=== PATIENT | male | born 1985 | race Caucasian/White ===

== ENCOUNTER 2017-04-15 16:53 | Emergency (ER) | payer BC ==
[~2017-04-15] VITALS: Ht 188 cm; Wt 70.6 kg
[2017-04-15 16:59] VITALS: TEMP 36.6; Ht 188 cm; Wt 70.6 kg
[2017-04-15] MEDS ORDERED: SODIUM CHLORIDE 0.9% 1000ML 1,000 ML IV STA (17:57)
[2017-04-15] MEDS ORDERED: KETOROLAC TROMETHAMINE 30 MG/ML VIAL IV STA (17:57)
[2017-04-15 18:28] LABS: URINE APPEARANCE CLOUDY (CLEAR); URINE BILIRUBIN NEG (NEG); URINE COLOR YELLOW; URINE NITRITE NEG (NEG); URINE SPECIFIC GRAVITY 1.025 (1.000-1.030); UROBILINOGEN NEG (NEG)
[2017-04-15 18:29] LABS: BASO % 0.3 %; BASO ABS # 0.03 K/uL (0-0.2); COMPLETE YES; EOS % 1.1 %; HEMATOCRIT 43.7 % (42-52); IG% 0.2 %; LYMPH % 26.9 %; LYMPH ABS # 3.05 K/uL (1.2-3.4); MEAN CORPUSCULAR HEMOGLOBIN 31.3 pg (25-34); MEAN CORPUSCULAR HGB CONC 33.6 g/dl (32-36); MEAN PLATELET VOLUME 8.5 fL (7.4-10.4); MONO % 10.9 %; NEUT % 60.6 %; PLATELET COUNT 325 K/uL (130-400); WHITE BLOOD COUNT 11.34 K/uL (4.8-10.8)
[2017-04-15 18:30] LABS: MANUAL MICROSCOPIC REQUIRED? NO; REVIEW REQ? NO
[2017-04-15 18:53] LABS: ALKALINE PHOSPHATASE 51 U/L (45-117); ALT/SGPT 20 U/L (12-78); AST/SGOT 13 U/L (15-37); BLOOD UREA NITROGEN 15 mg/dl (7-18); BUN/CREATININE RATIO 17.4 (10-20); CALCIUM 8.9 mg/dl (8.5-10.1); CARBON DIOXIDE 28 mmol/L (21-32); CHLORIDE 105 mmol/L (98-107); GLUCOSE 86 mg/dl (70-99); POTASSIUM 3.9 mmol/L (3.5-5.1); SODIUM 140 mmol/L (136-145)
--- NOTE | 2017-04-15 19:08 | DIAGNOSTIC IMAGING REPORT ---
ABDOMEN AND PELVIS CT WITHOUT CONTRAST CT DOSE: 585.99 mGycm HISTORY: Right-sided FLANK PAIN TECHNIQUE: Multiaxial CT images of the abdomen and pelvis were performed without the use of intravenous and oral contrast according to the standard department stone protocol. A dose lowering technique was utilized adhering to the principles of ALARA. COMPARISON STUDY: None. FINDINGS: Mild dependent changes seen within the lung bases posteriorly. No fractures within the visualized osseous structures. The unenhanced liver, spleen, adrenal glands, pancreas, and gallbladder are unremarkable. Multiple punctate bilateral renal calculi. No ureteral stones. No hydronephrosis. Bladder wall is mildly thickened. No pelvic free fluid. A few colonic diverticula. Suboptimal evaluation for bowel pathology due to the lack of intravenous and oral contrast. However, there is no definite bowel wall thickening or obstruction. The appendix is normal in caliber. IMPRESSION: 1. Bilateral nephrolithiasis. No ureteral stones. No hydronephrosis. 2. Mild bladder wall thickening. Recommend correlation with urinalysis to exclude a cystitis. 3. No definite bowel wall thickening or obstruction. 4. Normal appendix. Electronically signed by: Reggie Galindo M.D. 04/15/2017 7:06 PM Dictated Date/Time: 04/15/2017 6:56 PM
[2017-04-15 19:19] LABS: CREATININE 0.84 mg/dl (0.60-1.40)
[2017-04-15] MEDS ORDERED: CIPROFLOXACIN 500 MG TAB PO STA (19:55)
[2017-04-15] MEDS ORDERED: CIPR-255 PO (19:58)
[2017-04-15] MEDS ORDERED: NORCO 5/325MG HOME PACK PO ONE (20:00)
[2017-04-15 20:10] VITALS: BP 128/85; PULSE 70; O2SAT 98
--- NOTE | 2017-04-15 21:08 | EMERGENCY ROOM VISIT NOTE ---
History Report prepared by Christinaibdesmond: Toribio Lucia Under the Supervision of: Dr. Alan Bauer M.D. First contact with patient: 17:43 Chief Complaint: FLANK PAIN Stated Complaint: KIDNEY STONE PAINS History of Present Illness The patient is a 31 year old male who presents to the Emergency Room with complaints of waxing and waning RLQ abdominal pain beginning 9 hours ago. The patient has a history of kidney stones and states that his current symptoms feel very similar. He rates his current pain as a 5/10 in severity. He states that his pain began in his left flank and moved to his stomach. The patient also complains of burning with urination. Pt denies LOC, headache, fevers, chills, diaphoresis, visual changes, neck pain, chest pain, breathing difficulties, nausea, vomiting, melena, hematochezia, numbness, weakness, lymphadenopathy, rash, or other complaints. His previous kidney stones required lithotripsy. He denies any recent straining or injury. Source of History: patient Onset: 9 hours ago Position: abdomen (RLQ) Symptom Intensity: 5/10 Timing: waxes/wanes Associated Symptoms: + urinary symptoms ("burning") Review of Systems See HPI for pertinent positives and negatives. A total of ten systems were reviewed and were otherwise negative. Past Medical & Surgical Medical Problems: (1) Kidney stones (2) No Known Active Medical Problems Family History No pertinent family history stated. Social History Smoking Status: Current Some Day Smoker Housing Status: lives with family Current/Historical Medications Scheduled Ciprofloxacin Hcl (Cipro), 500 MG PO BID Allergies Coded Allergies: No Known Allergies (Unverified , 04/15/17) Physical Exam Vital Signs Date Time Temp Pulse Resp B/P (MAP) Pulse Ox O2 Delivery O2 Flow Rate FiO2 04/15/17 20:10 70 18 128/85 98 Room Air 04/15/17 18:51 60 18 137/85 100 Room Air 04/15/17 16:59 36.6 95 18 135/88 99 Room Air Physical Exam GENERAL: Awake, alert, well-appearing, in no distress HENT: Normocephalic, atraumatic. Oropharynx unremarkable. EYES: Normal conjunctiva. Sclera non-icteric. NECK: Supple. No nuchal rigidity. FROM. No JVD. RESPIRATORY: Clear to auscultation. CARDIAC: Regular rate, normal rhythm. Extremities warm and well perfused. Pulses equal. ABDOMEN: Soft, non-distended. No tenderness to palpation. No rebound or guarding. No masses. RECTAL: Deferred. MUSCULOSKELETAL: Chest examination reveals no tenderness. The back is symmetrical on inspection without obvious abnormality. Right CVA and right flank tenderness to percussion. No joint edema. LOWER EXTREMITIES: Calves are equal size bilaterally and non-tender. No edema. No discoloration. NEURO: Normal sensorium. No sensory or motor deficits noted. SKIN: No rash or jaundice noted. Medical Decision & Procedures ER Provider Diagnostic Interpretation: CT: Radiology results as stated below per my review and radiologist interpretation ABDOMEN AND PELVIS CT WITHOUT CONTRAST FINDINGS: Mild dependent changes seen within the lung bases posteriorly. No fractures within the visualized osseous structures. The unenhanced liver, spleen, adrenal glands, pancreas, and gallbladder are unremarkable. Multiple punctate bilateral renal calculi. No ureteral stones. No hydronephrosis. Bladder wall is mildly thickened. No pelvic free fluid. A few colonic diverticula. Suboptimal evaluation for bowel pathology due to the lack of intravenous and oral contrast. However, there is no definite bowel wall thickening or obstruction. The appendix is normal in caliber. IMPRESSION: 1. Bilateral nephrolithiasis. No ureteral stones. No hydronephrosis. 2. Mild bladder wall thickening. Recommend correlation with urinalysis to exclude a cystitis. 3. No definite bowel wall thickening or obstruction. 4. Normal appendix. Electronically signed by: Reggie Galindo M.D. Laboratory Results 04/15/17 18:15 Red Blood Count 4.70, Mean Corpuscular Volume 93.0, Mean Corpuscular Hemoglobin 31.3, Mean Corpuscular Hemoglobin Concent 33.6, Mean Platelet Volume 8.5, Neutrophils (%) (Auto) 60.6, Lymphocytes (%) (Auto) 26.9, Monocytes (%) (Auto) 10.9, Eosinophils (%) (Auto) 1.1, Basophils (%) (Auto) 0.3, Neutrophils # (Auto ) 6.87, Lymphocytes # (Auto) 3.05, Monocytes # (Auto) 1.24, Eosinophils # (Auto ) 0.13, Basophils # (Auto) 0.03 04/15/17 18:15 Test 04/15/17 18:10 04/15/17 18:15 Urine Color YELLOW Urine Appearance CLOUDY (CLEAR) Urine pH 7.0 (4.5-7.5) Urine Specific [place] 1.025 (1.000-1.030) Urine Protein NEG (NEG) Urine Glucose (UA) NEG (NEG) Urine Ketones NEG (NEG) Urine Occult Blood NEG (NEG) Urine Nitrite NEG (NEG) Urine Bilirubin NEG (NEG) Urine Urobilinogen NEG (NEG) Urine Leukocyte Esterase NEG (NEG) Urine WBC (Auto) 1-5 /hpf (0-5) Urine RBC (Auto) 0-4 /hpf (0-4) Urine Hyaline Casts (Auto) 0 /lpf (0-5) Urine Epithelial Cells (Auto) 5-10 /lpf (0-5) Urine Bacteria (Auto) NEG (NEG) White Blood Count 11.34 K/uL (4.8-10.8) Red Blood Count 4.70 M/uL (4.7-6.1) Hemoglobin 14.7 g/dL (14.0-18.0) Hematocrit 43.7 % (42-52) Mean Corpuscular Volume 93.0 fL (80-100) Mean Corpuscular Hemoglobin 31.3 pg (25-34) Mean Corpuscular Hemoglobin Concent 33.6 g/dl (32-36) Platelet Count 325 K/uL (130-400) Mean Platelet Volume 8.5 fL (7.4-10.4) Neutrophils (%) (Auto) 60.6 % Lymphocytes (%) (Auto) 26.9 % Monocytes (%) (Auto) 10.9 % Eosinophils (%) (Auto) 1.1 % Basophils (%) (Auto) 0.3 % Neutrophils # (Auto) 6.87 K/uL (1.4-6.5) Lymphocytes # (Auto) 3.05 K/uL (1.2-3.4) Monocytes # (Auto) 1.24 K/uL (0.11-0.59) Eosinophils # (Auto) 0.13 K/uL (0-0.5) Basophils # (Auto) 0.03 K/uL (0-0.2) RDW Standard Deviation 47.6 fL (36.4-46.3) RDW Coefficient of Variation 13.9 % (11.5-14.5) Immature Granulocyte % (Auto) 0.2 % Immature Granulocyte # (Auto) 0.02 K/uL (0.00-0.02) Anion Gap 7.0 mmol/L (3-11) Est Creatinine Clear Calc Drug Dose 126.1 ml/min Estimated GFR () 134.3 Estimated GFR (Non- 115.9 BUN/Creatinine Ratio 17.4 (10-20) Calcium Level 8.9 mg/dl (8.5-10.1) Total Bilirubin 0.2 mg/dl (0.2-1) Direct Bilirubin mg/dl (0-0.2) Aspartate Amino Transf (AST/SGOT) 13 U/L (15-37) Alanine Aminotransferase (ALT/SGPT) 20 U/L (12-78) Alkaline Phosphatase 51 U/L (45-117) Total Protein 7.7 gm/dl (6.4-8.2) Albumin 4.2 gm/dl (3.4-5.0) Lipase 146 U/L (73-393) Chemistry Specimen Hemolysis Laboratory results reviewed by me Medications Administered Medications (Trade) Dose Ordered Sig/Carlos Route Start Time Stop Time Status Last Admin Dose Admin Sodium Chloride 1,000 ml @ 999 mls/hr Q1H1M STAT IV 04/15/17 17:57 04/15/17 18:57 DC 04/15/17 18:18 999 MLS/HR Ketorolac Tromethamine (Toradol Inj) 30 mg NOW STAT IV 04/15/17 17:57 04/15/17 17:58 DC 04/15/17 18:23 30 MG Ciprofloxacin (Cipro Tab) 500 mg NOW STAT PO 04/15/17 19:55 04/15/17 19:57 DC 04/15/17 20:09 500 MG Acetaminophen/ Hydrocodone Bitart ([place] 5/325mg Home Pack) 1 homepack UD ONCE PO 04/15/17 20:00 04/15/17 20:01 DC 04/15/17 20:00 1 HOMEPACK ED Course 1755: The patient was evaluated in room B11B. A complete history and physical exam was performed. 1756: Ordered Toradol Inj 30 mg IV, Sodium Chloride 1000 ml @ 999 mls/hr IV. 1954: Ordered Cipro Tab 500 mg PO. 1999: Ordered [place] 5/325 mg home pack PO. I reevaluated the patient. Discussed results and discharge instructions: he verbalized understanding and agreement. The patient is ready for discharge. Medical Decision Triage Nursing notes reviewed. The patient's presentation and history were concerning for flank pain. Etiologies such as renal colic, appendicitis, diverticulitis, mesenteric ischemia, aortic pathology, infections, inflammatory bowel disease, PUD, biliary pathology, UTI, as well as others were entertained. The patient was evaluated. Clinically he was doing well. He and his pain had improved. He was hydrated and given IV Toradol. The patient underwent CT imaging and laboratory testing. Urinalysis was not overly concerning. His CBC showed a mild leukocytosis. Chemistry panel was unremarkable. CT imaging showed nephrolithiasis as well as a thickened bladder wall. Etiology raise concerns about a cystitis. There is no evidence of ureterolithiasis. The patient was informed of the findings. I will start him on oral Cipro. The patient noted some mild pain and requested analgesia. PDMP review revealed no abnormalities. The patient was given a home pack of [place], he will use ibuprofen, and Cipro. I did give him referral information for urology. I gave my usual and customary discussion regarding this issue. By the evaluation outlined above other emergent etiologies such as those listed in the differential, as well as others, were deemed relatively unlikely. The patient was educated about the findings as listed above. All questions were answered and the patient was pleased with the treatment. Return instructions were outlined and the patient was discharged in stable condition. The patient was referred to his PCP and urology for follow-up for a recheck of the current condition. [place] Drug Monitoring Program Search Results: patient reviewed within database, no issues identified Medication Reconcilliation Current Medication List: was personally reviewed by me Blood Pressure Screening Patient's blood pressure: Elevated blood pressure Blood pressure disposition: Elevated BP felt to be situational Impression Primary Impression: Right flank pain Additional Impression: Cystitis Scribe Attestation The scribe's documentation has been prepared under my direction and personally reviewed by me in its entirety. I confirm that the note above accurately reflects all work, treatment, procedures, and medical decision making performed by me. Departure Information Dispostion Home / Self-Care Prescriptions Ciprofloxacin Hcl (CIPRO) 500 Mg Tab 500 MG PO BID, #14 TAB Prov: Alan Bauer MD 04/15/17 Forms HOME CARE DOCUMENTATION FORM, IMPORTANT VISIT INFORMATION Patient Instructions My [facility] Additional Instructions Ciprofloxacin 500mg: Take one pill twice daily for 7 days for your infection. All antibiotics can cause diarrhea. If this occurs and you feel worse or it does not resolve in 1-2 days follow up with your doctor or return to the Emergency Department as this could be signs of serious underlying problems. Any medication can cause an allergic reaction or complication, stop the pills immediately and return to the ER for rash, hives, breathing difficulties, tendon pain, tendon injury, or swelling. Hydrocodone/acetaminophen 5/325mg: Take 1-2 pills every 6 hours as needed for pain. Avoid additional Acetaminophen/Tylenol, alcohol, operating machinery or dangerous equipment, working on ladders or roofs, DRIVING, or situations where being under the influence may be dangerous. It is recommended to use a stool softener such as Colace, 100mg twice daily while taking this medication to avoid constipation. Ibuprofen(Motrin, Advil) may be used for fever or pain. Use 600mg every six hours as needed. Take with food. Avoid using more than 2400mg in a 24 hour period. Do not use 2400mg per day for more than three consecutive days without physician direction. Prolonged inappropriate use can lead to stomach upset or ulcers. This medication can be taken if you need to drive, work, or perform activities which may be dangerous when taking narcotic pain medication. (AND/OR) Acetaminophen(Tylenol) may be used for fever or pain. Use 1000mg every six hours as needed. Avoid using more than 4000mg in a 24 hour period. This medication can be taken if you need to drive, work, or perform activities which may be dangerous when taking narcotic pain medication. Rest and avoid strenuous activity until your symptoms resolve. Drink plenty of fluids. Return to the ER for worsening abdominal or back pain, vomiting, fevers, passing out, or as needed. Follow up with [facility] tomorrow, [phone], to arrange a visit. Follow-up with your primary care physician in 2 to 3 days for a recheck of your current condition. Problem Qualifiers
== END 2017-04-15 20:24 | disposition home or self-care (01) ==
LOC: C.EDB 16:55
DX: N30.90 Cystitis, unspecified without hematuria (principal); N20.0 Calculus of kidney; R10.31 Right lower quadrant pain; F17.200 Nicotine dependence, unspecified, uncomplicated; Z87.442 Personal history of urinary calculi

== ENCOUNTER 2017-04-18 22:40 | Emergency (ER) | payer BC ==
[~2017-04-18] VITALS: Ht 188 cm; Wt 73.1 kg
[~2017-04-18 22:40] MED LIST: CIPR-255 PO
[2017-04-18 22:47] VITALS: TEMP 36.5; Ht 188 cm; Wt 73.1 kg
[2017-04-18] MEDS ORDERED: SODIUM CHLORIDE 0.9% 1000ML 1,000 ML IV STA ×2 (22:56)
[2017-04-18] MEDS ORDERED: KETOROLAC TROMETHAMINE 30 MG/ML VIAL IV STA (22:56)
[2017-04-18 23:45] LABS: BASO % 0.4 %; BASO ABS # 0.04 K/uL (0-0.2); COMPLETE YES; EOS % 4.6 %; HEMATOCRIT 42.3 % (42-52); IG% 0.3 %; LYMPH % 38.4 %; MEAN CELL VOLUME 92.6 fL (80-100); MEAN CORPUSCULAR HEMOGLOBIN 31.5 pg (25-34); MEAN PLATELET VOLUME 8.4 fL (7.4-10.4); MONO % 12.1 %; NEUT % 44.2 %; PLATELET COUNT 325 K/uL (130-400); RED BLOOD COUNT 4.57 M/uL (4.7-6.1); WHITE BLOOD COUNT 10.94 K/uL (4.8-10.8)
[2017-04-19 00:06] LABS: URINE APPEARANCE CLEAR (CLEAR); URINE BILIRUBIN NEG (NEG); URINE COLOR YELLOW; URINE NITRITE NEG (NEG); URINE PH 5.5 (4.5-7.5); URINE SPECIFIC GRAVITY 1.024 (1.000-1.030); UROBILINOGEN NEG (NEG); ZZUR CULT IF INDIC CLEAN CATCH NO
[2017-04-19 00:11] LABS: ALT/SGPT 14 U/L (12-78); BLOOD UREA NITROGEN 19 mg/dl (7-18); BUN/CREATININE RATIO 21.2 (10-20); CALCIUM 8.9 mg/dl (8.5-10.1); CARBON DIOXIDE 28 mmol/L (21-32); CHLORIDE 106 mmol/L (98-107); CREATININE 0.91 mg/dl (0.60-1.40); GLUCOSE 85 mg/dl (70-99); POTASSIUM 3.8 mmol/L (3.5-5.1); SODIUM 140 mmol/L (136-145)
[2017-04-19 00:14] LABS: ALKALINE PHOSPHATASE 54 U/L (45-117); AST/SGOT 12 U/L (15-37)
[2017-04-19 00:15] LABS: MANUAL MICROSCOPIC REQUIRED? NO; REVIEW REQ? NO
[2017-04-19] MEDS ORDERED: CIPR-255 PO (00:59)
[2017-04-19] MEDS ORDERED: MoRPHine SULFATE 4 MG/ML 1 ML CARP\\VIAL ONE (01:00)
[2017-04-19] MEDS ORDERED: MoRPHine SULFATE 4 MG/ML 1 ML CARP\\VIAL IV STA (01:04)
[2017-04-19 01:30] VITALS: BP 120/56
[2017-04-19 01:44] VITALS: PULSE 75; O2SAT 96
--- NOTE | 2017-04-19 04:50 | EMERGENCY ROOM VISIT NOTE ---
History First contact with patient: 22:51 Chief Complaint: FLANK PAIN Stated Complaint: SHARP STABBING PAIN IN MID STOMACH TO BACK R SIDE History of Present Illness The patient is a 31 year old male who presents to the Emergency Room with complaints of right flank pain that radiates to his groin for the past day described as aching, ranging in severity currently 6 out of 10. Nothing makes it better or worse. He was here the other day with a similar complaint. He had a CT scan that showed nonobstructed nephrolithiasis. He has a history kidney stones. Patient denies urinary symptoms, chest pain, dyspnea, fever, chills, testicular pain, penile pain. No injury to the area. Review of Systems See HPI for pertinent positives & negatives. A total of 10 systems reviewed and were otherwise negative. Past Medical/Surgical History Medical Problems: (1) Kidney stones (2) No Known Active Medical Problems Social History Smoking Status: Never Smoker Housing Status: lives with family Current/Historical Medications Scheduled Ciprofloxacin Hcl (Cipro), 500 MG PO BID Physical Exam Vital Signs Date Time Temp Pulse Resp B/P (MAP) Pulse Ox O2 Delivery O2 Flow Rate FiO2 04/19/17 01:44 75 17 96 04/19/17 01:30 120/56 04/19/17 01:29 64 12 97 04/19/17 01:14 62 15 98 04/19/17 01:00 120/68 04/19/17 00:59 57 14 95 04/19/17 00:54 125/61 95 04/19/17 00:05 56 14 95 04/19/17 00:00 55 14 110/64 95 04/18/17 23:45 55 13 97 04/18/17 23:30 51 15 115/59 95 04/18/17 23:13 Room Air 04/18/17 23:13 128/71 04/18/17 22:47 36.5 78 18 132/72 96 Room Air Pain Rating (0-10): 3.0 Physical Exam VITALS: Vitals are noted on the nurse's note and reviewed by myself. Vital signs stable. GENERAL: Pleasant male, in no acute distress, nondiaphoretic, well-developed well-nourished. SKIN: The skin was without rashes, erythema, edema, or bruising. There is no tenting of the skin. Capillary reflex less than 2 seconds. HEAD: Normocephalic atraumatic. EARS: External auditory canals clear, tympanic membranes pearly martines without erythema or effusion bilaterally. EYES: Pupils equal round and reactive to light and accommodation. Conjunctivae without injection, sclerae without icterus. Extraocular movements intact. NOSE: Patent, turbinates without inflammation or discharge. MOUTH: Mucous membranes moist. Pharynx without erythema or exudate. Uvula midline. Airway patent. Tongue does not deviate. NECK: Supple without nuchal rigidity. No lymphadenopathy. No thyromegaly. Cervical spine is nontender. No JVD. HEART: Regular rate and rhythm without murmurs gallops or rubs. LUNGS: Clear to auscultation bilaterally without wheezes, rales or rhonchi. No dullness to percussion. No retractions or accessory muscle use. ABDOMEN: Positive bowel sounds x 4. Normal tympanic percussion. Soft, nontender, without masses or organomegaly. Angelo sign negative. No guarding or rebound tenderness. No CVA tenderness MUSCULOSKELETAL: No muscle atrophy, erythema, or edema noted. NEURO: Patient was alert and oriented to person place and time. Normal sensation to light and sharp touch. No focal neurological deficits. Medical Decision & Procedures Laboratory Results 04/18/17 23:25 Red Blood Count 4.57, Mean Corpuscular Volume 92.6, Mean Corpuscular Hemoglobin 31.5, Mean Corpuscular Hemoglobin Concent 34.0, Mean Platelet Volume 8.4, Neutrophils (%) (Auto) 44.2, Lymphocytes (%) (Auto) 38.4, Monocytes (%) (Auto) 12.1, Eosinophils (%) (Auto) 4.6, Basophils (%) (Auto) 0.4, Neutrophils # (Auto ) 4.85, Lymphocytes # (Auto) 4.20, Monocytes # (Auto) 1.32, Eosinophils # (Auto ) 0.50, Basophils # (Auto) 0.04 04/18/17 23:25 Test 04/18/17 23:25 White Blood Count 10.94 K/uL (4.8-10.8) Red Blood Count 4.57 M/uL (4.7-6.1) Hemoglobin 14.4 g/dL (14.0-18.0) Hematocrit 42.3 % (42-52) Mean Corpuscular Volume 92.6 fL (80-100) Mean Corpuscular Hemoglobin 31.5 pg (25-34) Mean Corpuscular Hemoglobin Concent 34.0 g/dl (32-36) Platelet Count 325 K/uL (130-400) Mean Platelet Volume 8.4 fL (7.4-10.4) Neutrophils (%) (Auto) 44.2 % Lymphocytes (%) (Auto) 38.4 % Monocytes (%) (Auto) 12.1 % Eosinophils (%) (Auto) 4.6 % Basophils (%) (Auto) 0.4 % Neutrophils # (Auto) 4.85 K/uL (1.4-6.5) Lymphocytes # (Auto) 4.20 K/uL (1.2-3.4) Monocytes # (Auto) 1.32 K/uL (0.11-0.59) Eosinophils # (Auto) 0.50 K/uL (0-0.5) Basophils # (Auto) 0.04 K/uL (0-0.2) RDW Standard Deviation 46.6 fL (36.4-46.3) RDW Coefficient of Variation 13.7 % (11.5-14.5) Immature Granulocyte % (Auto) 0.3 % Immature Granulocyte # (Auto) 0.03 K/uL (0.00-0.02) Urine Color YELLOW Urine Appearance CLEAR (CLEAR) Urine pH 5.5 (4.5-7.5) Urine Specific [place] 1.024 (1.000-1.030) Urine Protein NEG (NEG) Urine Glucose (UA) NEG (NEG) Urine Ketones NEG (NEG) Urine Occult Blood NEG (NEG) Urine Nitrite NEG (NEG) Urine Bilirubin NEG (NEG) Urine Urobilinogen NEG (NEG) Urine Leukocyte Esterase NEG (NEG) Anion Gap 6.0 mmol/L (3-11) Est Creatinine Clear Calc Drug Dose 120.5 ml/min Estimated GFR () 128.8 Estimated GFR (Non- 111.1 BUN/Creatinine Ratio 21.2 (10-20) Calcium Level 8.9 mg/dl (8.5-10.1) Total Bilirubin 0.3 mg/dl (0.2-1) Direct Bilirubin < 0.1 mg/dl (0-0.2) Aspartate Amino Transf (AST/SGOT) 12 U/L (15-37) Alanine Aminotransferase (ALT/SGPT) 14 U/L (12-78) Alkaline Phosphatase 54 U/L (45-117) Total Creatine Kinase 137 U/L (39-308) Total Protein 7.8 gm/dl (6.4-8.2) Albumin 4.1 gm/dl (3.4-5.0) Lipase 123 U/L (73-393) Medications Administered Medications (Trade) Dose Ordered Sig/Carlos Route Start Time Stop Time Status Last Admin Dose Admin Sodium Chloride 1,000 ml @ 999 mls/hr Q1H1M STAT IV 04/18/17 22:56 04/18/17 23:56 DC 04/18/17 23:27 999 MLS/HR Sodium Chloride 1,000 ml @ 125 mls/hr Q8H STAT IV 04/18/17 22:56 04/19/17 02:40 DC 04/18/17 23:27 125 MLS/HR Ketorolac Tromethamine (Toradol Inj) 30 mg NOW STAT IV 04/18/17 22:56 04/18/17 22:59 DC 04/18/17 23:28 30 MG Morphine Sulfate (MoRPHine SULFATE INJ) 4 mg STK-MED ONCE .ROUTE 04/19/17 01:00 04/19/17 01:01 DC 04/19/17 01:05 4 MG ED Course Prior records/ancillary studies reviewed. Triage Nursing notes reviewed. Additional history obtained from family. The patient's history was concerning for abdominal pain. Differential diagnosis: Etiologies such as appendicitis, diverticulitis, PUD, biliary pathology, UTI, pancreatitis, obstruction, mesenteric ischemia, aortic pathology, infections, inflammatory bowel disease, renal colic, as well as others were entertained. Physical examination findings: As above. ER treatment provided: Toradol, morphine, Zofran, IV fluids On reassessment the patient felt better. Diagnostics interpreted by me: The labs revealed urine is negative for infection stable H&H Imaging studies: CT scan was reviewed from 2 days ago and showed no obstructive kidney stones. Ultrasound today shows no hydronephrosis per radiology Exam and history seem consistent with ongoing right flank pain. Patient had a CT scan 2 days ago. This was negative. Ultrasound was also negative today. Patient was advised follow-up family care for his ongoing symptoms or here in the ER sooner for fevers, severe pain, vomiting, worsening signs or symptoms or as needed. Patient did not have an acute abdomen on exam. He was well- appearing. He is tolerating fluids.By the evaluation outlined above emergent etiologies such as appendicitis, diverticulitis, PUD, biliary pathology, UTI, pancreatitis, obstruction, mesenteric ischemia, aortic pathology, infections, inflammatory bowel disease, renal colic, as well as others were deemed relatively unlikely. The pt informed about the findings as listed above. All questions were answered and pleased with the treatment. Return instructions were outlined and the patient was discharged in stable condition. Case reviewed with my attending Referral: The patient was referred back to their primary care physician for follow-up in 2 to 3 days for a recheck of the current condition. Medical Decision As above Medication Reconcilliation Current Medication List: was personally reviewed by me Blood Pressure Screening Patient's blood pressure: Normal blood pressure Impression Primary Impression: Right flank pain Departure Information Dispostion Home / Self-Care Condition GOOD Forms HOME CARE DOCUMENTATION FORM, Work Instructions, Return To Work: 1 day IMPORTANT VISIT INFORMATION Patient Instructions My [facility], ED Flank Pain Uncertain Cause Additional Instructions DO NOT drive, drink alcohol, operate machinery, or perform dangerous activities today. You were given medications in the ER that can affect your ability to safely function or operate a vehicle. Ibuprofen(Motrin, Advil) may be used for fever or pain. Use 600mg every six hours as needed. Take with food. Avoid using more than 2400mg in a 24 hour period. Do not use 2400mg per day for more than three consecutive days without physician direction. Prolonged inappropriate use can lead to stomach upset or ulcers. (AND/OR) Acetaminophen(Tylenol) may be used for fever or pain. Use 1000mg every six hours as needed. Avoid using more than 3000mg in a 24 hour period. Rest and drink plenty of fluids as tolerated. Slow sips of water or sports drinks are recommended instead of large amounts all at once. Continue current medications. Once your stomach is settled start with a clear liquid diet (jello, soup broth, etc.) and then advance as tolerated. You should avoid full, heavy meals for about 24 hrs from the time your symptoms resolved. Return to the ER immediately for worsening or persistent abdominal pain, vomiting, fevers, chest pains, difficulty breathing, black or bloody stools, worsening of your condition, or as needed. Follow up with your primary physician in 24 hours for a recheck of your current condition. Recommend referral to GI for further workup for your pain. Work Instructions Return To Work: 1 day
--- NOTE | 2017-04-19 06:42 | DIAGNOSTIC IMAGING REPORT ---
RENAL ULTRASOUND CLINICAL HISTORY: Right flank pain. Possible stone. COMPARISON STUDY: CT of the abdomen and pelvis April 15, 2017. TECHNIQUE: Sonography of the kidneys and the urinary bladder was performed. FINDINGS: The right kidney measures 10.6 x 5.4 x 6 cm and the left measures 10.9 x 5.8 x 5.2 cm. There is no hydronephrosis. There is a 9 mm right renal cyst. Tiny echogenic foci within each renal sinus suggest small calculi as shown on prior CT. Both ureteral jets were identified. IMPRESSION: 1. No hydronephrosis. 2. Small bilateral renal calculi as shown on prior CT. Electronically signed by: Marc Ann M.D. 04/19/2017 6:41 AM Dictated Date/Time: 04/19/2017 6:39 AM
== END 2017-04-19 01:53 | disposition home or self-care (01) ==
LOC: C.EDB 22:42
DX: R10.9 Unspecified abdominal pain (principal)

== ENCOUNTER → 2017-12-13 | Outpatient (CLI) | payer OTHER | END | disposition home or self-care (01) | LOC: C.LAB 07:36 | DX: Z02.83 Encounter for blood-alcohol and blood-drug test (principal) ==